=== PATIENT | male | born 1955 | race Caucasian/White ===

== ENCOUNTER 2016-06-25 09:06 | Inpatient (IN) | payer OTHER ==
[2016-06-25] MEDS ORDERED: MAG HYDROX/AL HYDROX/SIMETH 355 ML ORAL.SUSP PO ONE (10:23)
[2016-06-25] MEDS ORDERED: FAMOTIDINE 20 MG/50 ML IVPB 20 MG in PREMIX 50 IVPB ONE (10:23)
--- NOTE | 2016-06-25 10:31 | PDOC ---
History of Present Illness - General History Source: Patient Exam Limitations: No Limitations - History of Present Illness Travel History: No <Rigo Reese - Last Filed: 06/25/16 15:19> - General History Source: Patient Exam Limitations: No Limitations - History of Present Illness Initial Comments: 06/25/16 10:48 The patient is a 60 year old male, with a significant past medical history of NIDDM, who presents to the emergency department with abdominal pain for 1 month. Patient notes that the abdominal pain is localized to LUQ intermittent and sharp in nature radiating to left flank without associated nausea and vomiting. He notes that the pain lasts for ~1 hour after he eats and he describes it as bloated sensation. He denies chest pain, shortness of breath, headache and dizziness. He denies fever, chills, nausea, vomit, diarrhea and constipation. He denies dysuria, frequency, urgency and hematuria. No associated numbness/tingling/weakness. Social history: denies any EtOH use <Maye Monreal - Last Filed: 06/25/16 15:22> - General Chief Complaint: Pain Stated Complaint: LT SIDE PAIN Time Seen by Provider: 06/25/16 09:50 Past History - Past Medical History Diabetes: Yes Hypercholesterolemia: Yes - Psycho/Social/Smoking Cessation Hx Anxiety: No Suicidal Ideation: No Smoking Status: No Smoking History: Never smoked Number of Cigarettes Smoked Daily: 0 Hx Alcohol Use: Yes (SOCIAL) Drug/Substance Use Hx: No Substance Use Type: None <Rigo Reese - Last Filed: 06/25/16 15:19> <Maye Monreal - Last Filed: 06/25/16 15:22> - Past Medical History Allergies/Adverse Reactions: Allergies Allergy/AdvReac Type Severity Reaction Status Date / Time No Known Allergies Allergy Verified 06/25/16 09:17 Home Medications: Ambulatory Orders Sitagliptin Phos/Metformin HCl [Janumet 50-1,000 mg Tablet] 1 each PO DAILY Review of Systems - Review of Systems Able to Perform ROS?: Yes Comments:: 06/25/16 10:48 CONSTITUTIONAL: No reported: Fever, Chills, Diaphoresis, Generalized Weakness, Malaise, Loss of Appetite HEENT: No reported: Rhinorrhea, Nasal Congestion, Throat Pain, Throat Swelling, Difficulty Swallowing, Mouth Swelling, Ear Pain, Eye Pain, Visual Changes CARDIOVASCULAR: No reported: Chest Pain, Syncope, Palpitations, Irregular Heart Rate, Lightheadedness, Peripheral Edema RESPIRATORY: No reported: Cough, Shortness of Breath, SOB with Exertion, Orthopnea, Wheezing , Stridor, Hemoptysis GASTROINTESTINAL: Reported: abdominal pain. No reported: Abdominal Distension, Nausea, Vomiting, Diarrhea, Constipation, Melena, Hematochezia GENITOURINARY: Reported: flank pain No reported: Dysuria, Frequency, Urgency, Hesitancy, Genital Pain MUSCULOSKELETAL: No reported: Myalgia, Arthralgia, Joint Swelling, Neck Pain, Back pain SKIN: No reported: Rash, Itching, Pallor HEMATOLOGIC/IMMUNOLOGIC: No reported: Easy Bleeding, Easy Bruising, Lymphadenopathy, Frequent infections ENDOCRINE: No reported: Unexplained Weight Gain, Unexplained Weight Loss, Heat Intolerance , Cold Intolerance NEUROLOGIC: No reported: Headache, Focal Weakness, Paresthesias, Vertigo, Lightheadedness, Unsteady Gait, Seizure, Mental Status Changes, Incontinence PSYCHIATRIC: No reported: Anxiety, Depression <Maye Monreal - Last Filed: 06/25/16 15:22> *Physical Exam - Vital Signs Last Vital Signs Temp Pulse Resp BP Pulse Ox 97.8 F 78 20 138/75 99 06/25/16 09:12 06/25/16 09:12 06/25/16 09:12 06/25/16 09:12 06/25/16 09:12 <Rigo Reese - Last Filed: 06/25/16 15:19> - Vital Signs Last Vital Signs Temp Pulse Resp BP Pulse Ox 97.8 F 78 20 138/75 99 06/25/16 09:12 06/25/16 09:12 06/25/16 09:12 06/25/16 09:12 06/25/16 09:12 - Physical Exam Comments: 06/25/16 10:48 GENERAL: The patient is awake, alert, and fully oriented, Nontoxic - in no acute distress. HEAD: Normocephalic, atraumatic. EYES: extraocular movements intact, sclera anicteric, conjunctiva clear. ENT: Normal voice, Moist mucous membranes. NECK: Normal range of motion, No JVD LUNGS: Breath sounds equal, clear to auscultation bilaterally. No wheezes, no rhonchi, no rales. HEART: Regular rate and rhythm, normal S1 and S2 without murmur, rub or gallop. ABDOMEN: +mild LUQ tenderness upon palpation. Soft, normoactive bowel sounds. No guarding, no rebound. No masses. No CVA tenderness EXTREMITIES: Normal range of motion, no edema. No clubbing or cyanosis. No cords , erythema, or tenderness. NEUROLOGICAL: No facial asymmetry, Normal speech, normal gait, moving all 4 extremities spontaneously and symmetrically PSYCH: Normal mood, normal affect. SKIN: Warm, Dry, normal turgor. <Maye Monreal - Last Filed: 06/25/16 15:22> ED Treatment Course - LABORATORY CBC & Chemistry Diagram: 06/25/16 10:33 06/25/16 10:33 <Rigo Reese - Last Filed: 06/25/16 15:19> - LABORATORY CBC & Chemistry Diagram: 06/25/16 10:33 06/25/16 10:33 - Medications Given in the ED: ED Medications Discontinued Medications Generic Name Dose Route Start Last Admin Trade Name Ellie PRN Reason Stop Dose Admin Al Hydroxide/Mg Hydroxide 30 ml 06/25/16 10:23 06/25/16 10:43 Mylanta Suspension - PO 06/25/16 10:24 30 ml ONCE ONE Administration <Maye Monreal - Last Filed: 06/25/16 15:22> Medical Decision Making - Medical Decision Making 06/25/16 10:25 60y M hx of dm, htn, presents with LUQ pain x 1 month, worse after he eats and lasts for approx 1 hr, is sharp in nature, and radiates from his left flank to his luq. pts exam is unremarkable. vitals nromal differential for the pts sypmtmos include possible gastritis, pancreatitis consider possible ?mesenteric ischemia, acs will ck ekg to r/o acs will ck labs will give pepcid/maalox consider CTA abdomen will reassesss A portion of this note was documented by scribe services under my direction. I have reviewed the details of the note, within reason, and agree with the documentation with the following case summary and management plan written by me 06/25/16 12:42 The patient's blood work was reviewed lipase elevated to 800s suspect pain secondary to pancreatitis will obtain GB US to r/o gallstone pancreatitis pt give morphine for pain likely admission 06/25/16 15:19 case d.w EDGER TAILER kirby agreed with admission for further mangaement as pt unable to tolerate any thing by mouth due to pain US negative Stable for admission to [facility] Case discussed in detail with admitting physician including history, physical exam and ancillary studies. Admitting physician has assumed care for the patient, will follow all pending diagnostics and will complete the evaluation and treatment. <Rigo Reese - Last Filed: 06/25/16 15:19> *DC/Admit/Observation/Transfer - Discharge Dispostion Admit: Yes <Rigo Reese - Last Filed: 06/25/16 15:19> - Attestations Scribe Attestion: 06/25/16 10:48 Documentation prepared by EDOUARD Woods, acting as medical imaging technologist for Rigo Reese MD. <Maye Monreal - Last Filed: 06/25/16 15:22> Diagnosis at time of Disposition: Pancreatitis Qualifiers: Chronicity: acute Pancreatitis type: other Qualified Code(s): K85.8 - Other acute pancreatitis
[2016-06-25] MEDS ORDERED: MAG HYDROX/AL HYDROX/SIMETH 30 ML UNIT-DOSE CUP ONE (10:39)
[2016-06-25] MEDS ORDERED: FAMOTIDINE 20 MG/50 ML IVPB 50 ML IVPB ONE (10:39)
[2016-06-25 10:53] LABS: BASOPHIL 0.7 % (0-2.0); EOSINOPHIL 1.3 % (0-4.5); MCH 29.3 pg (25.7-33.7); MCHC 32.7 g/dl (32.0-35.9); MEAN CELL VOLUME 89.7 fl (80-96); MEAN PLT VOLUME 9.6 fl (7.5-11.1); NEUTROPHILS 53.4 % (42.8-82.8); PLATELET COUNT 212 K/MM3 (134-434); RDW 13.7 % (11.9-15.9); WHITE BLOOD COUNT 5.7 K/mm3 (4.0-10.0)
[2016-06-25 10:54] LABS: URINE APPEARANCE CLEAR; URINE BILIRUBIN NEGATIVE (NEGATIVE); URINE BLOOD NEGATIVE (NEGATIVE); URINE COLOR YELLOW; URINE GLUCOSE (UA) 1+ (NEGATIVE); URINE KETONE NEGATIVE (NEGATIVE); URINE LEUK ESTERASE NEGATIVE (NEGATIVE); URINE NITRITE NEGATIVE (NEGATIVE); URINE PROTEIN NEGATIVE (NEGATIVE); URINE UROBILINOGEN NEGATIVE E.U./dl (0.2-1.0)
[2016-06-25 11:30] LABS: ALBUMIN 4.3 g/dl (3.4-5.0); ANION GAP 9 (8-16); CALCIUM 9.7 mg/dL (8.5-10.1); CO2 29 mmol/L (21-32); CREATININE 0.9 mg/dL (0.7-1.3); GLUCOSE,RANDOM 182 mg/dL (74-106)
[2016-06-25] MEDS ORDERED: morphine CARPU-JECT 4 MG/1 ML DISP.SYRIN IVPUSH ONE (11:52)
[2016-06-25] MEDS ORDERED: morphine CARPU-JECT 4 MG/1 ML DISP.SYRIN ONE (12:21)
[2016-06-25 12:26] LABS: ALK PHOS 53 U/L (45-117); BILIRUBIN,TOTAL 0.6 mg/dL (0.2-1.0); SGOT/AST 19 U/L (15-37); SGPT/ALT 36 U/L (12-78); TOT PROT 7.6 g/dl (6.4-8.2)
[2016-06-25] MEDS ORDERED: ACETAMINOPHEN 325 MG TABLET (FP) PO PRN (15:21)
[2016-06-25] MEDS ORDERED: ONDANSETRON 4 MG/2 ML VIAL IVPB PRN (15:21)
[2016-06-25] MEDS ORDERED: HYDROmorphone HCL CARPU-JECT 1 MG/1 ML DISP.SYRIN IVPB PRN (15:26)
--- NOTE | 2016-06-25 16:05 | HP ---
CHIEF COMPLAINT: Abdominal pain PCP: Affiliated with [facility] HISTORY OF PRESENT ILLNESS: This is a 60 year old male with a history of NIDDM and CVA (in DR approx 6 months ago, had left-sided weakness at that time, but currently is without residual deficits) who presented to the ED today complaining of abdominal pain. He reports that he has had this pain for months, but it became worse last night. It originates in the LUQ and radiates to the epigastrium. It is worse with eating and he has not been able to eat since last night. He vomited once this morning. He denies hematemesis, hematochezia, fevers /chills, or any other symptoms. He takes ASA 81mg tablet + 40mg tablet daily per his report, but no other NSAIDS. He reports very occasional alcohol use. ER course was notable for: (1) Lipase 821 (2) Abdomen u/s: no gallstones identified Recent Travel: None Social History: From , not currently employed, lives with Smoking: None Alcohol: Occasional Drugs: None Allergies No Known Allergies Allergy (Verified 06/25/16 09:17) HOME MEDICATIONS: Medication Instructions Recorded Sitagliptin Phos/Metformin HCl 1 each PO DAILY 06/25/16 [Janumet 50-1,000 mg Tablet] REVIEW OF SYSTEMS CONSTITUTIONAL: Absent: fever, chills, diaphoresis, generalized weakness, malaise, loss of appetite, weight change HEENT: Absent: rhinorrhea, nasal congestion, throat pain, throat swelling, difficulty swallowing, mouth swelling, ear pain, eye pain, visual changes CARDIOVASCULAR: Absent: chest pain, syncope, palpitations, irregular heart rate, lightheadedness , peripheral edema RESPIRATORY: Absent: cough, shortness of breath, dyspnea with exertion, orthopnea, wheezing, stridor, hemoptysis GASTROINTESTINAL: See HPI GENITOURINARY: Absent: dysuria, frequency, urgency, hesitancy, hematuria, flank pain, genital pain MUSCULOSKELETAL: Absent: myalgia, arthralgia, joint swelling, back pain, neck pain SKIN: Absent: rash, itching, pallor HEMATOLOGIC/IMMUNOLOGIC: Absent: easy bleeding, easy bruising, lymphadenopathy, frequent infections ENDOCRINE: Absent: unexplained weight gain, unexplained weight loss, heat intolerance, cold intolerance NEUROLOGIC: Absent: headache, focal weakness or paresthesias, dizziness, unsteady gait, seizure, mental status changes, bladder or bowel incontinence PSYCHIATRIC: Absent: anxiety, depression, suicidal or homicidal ideation, hallucinations. PHYSICAL EXAMINATION GENERAL: Awake, alert, and fully oriented, in no acute distress. HEAD: Normal with no signs of trauma. EYES: Pupils equal, round and reactive to light, extraocular movements intact, sclera anicteric, conjunctiva clear. No lid lag. EARS, NOSE, THROAT: Ears normal, nares patent, oropharynx clear without exudates. Moist mucous membranes. NECK: Normal range of motion, supple without lymphadenopathy, JVD, or masses. LUNGS: Breath sounds equal, clear to auscultation bilaterally. No wheezes, and no crackles. No accessory muscle use. HEART: Regular rate and rhythm, normal S1 and S2 without murmur, rub or gallop. ABDOMEN: Soft, tender to deep palpation in LUQ and epigastrium, not distended, normoactive bowel sounds, no guarding, no rebound, no masses. No hepatomegaly or splenomegaly. MUSCULOSKELETAL: Normal range of motion at all joints. No bony deformities or tenderness. No CVA tenderness. UPPER EXTREMITIES: 2+ pulses, warm, well-perfused. No cyanosis. No clubbing. Cap refill <2 seconds. No peripheral edema. LOWER EXTREMITIES: 2+ pulses, warm, well-perfused. No calf tenderness. No peripheral edema. NEUROLOGICAL: Cranial nerves II-XII intact. Normal speech. Normal gait. PSYCHIATRIC: Cooperative. Good eye contact. Appropriate mood and affect. SKIN: Warm, dry, normal turgor, no rashes or lesions noted. ASSESSMENT/PLAN: 60 year old male with pancreatitis. Problem List - Problem (1) Pancreatitis Assessment/Plan: -NPO; advance as tolerated -Lactated Ringer's 83 mL/hr -Send LDH -Famotidine 20mg IVPB bid for epigastric discomfort -Dilaudid 0.5mg IVPB q6h prn breakthrough pain -Send triglycerides -Follow lipase Code(s): K85.9 - ACUTE PANCREATITIS, UNSPECIFIED * DO NOT USE * Qualifiers: Chronicity: acute Pancreatitis type: other Qualified Code(s): K85.8 - Other acute pancreatitis (2) Diabetes Assessment/Plan: -Hold oral hypoglycemics while inpatient -FSACHS -ISS -Diabetic diet when resumes PO Code(s): E11.9 - TYPE 2 DIABETES MELLITUS WITHOUT COMPLICATIONS (3) DVT prophylaxis Assessment/Plan: -Lovenox 40mg sq daily -Ambulation Code(s): [id number] - Visit type - Emergency Visit Emergency Visit: Yes ED Registration Date: 06/25/16 Care time: The patient presented to the Emergency Department on the above date and was hospitalized for further evaluation of their emergent condition. - New Patient This patient is new to me today: Yes Date on this admission: 06/25/16 - Critical Care Critical Care patient: No
--- NOTE | 2016-06-25 16:16 | EKG ---
Test Reason : Blood Pressure : / mmHG Vent. Rate : 063 BPM Atrial Rate : 063 BPM P-R Int : 160 ms QRS Dur : 082 ms QT Int : 396 ms P-R-T Axes : 067 011 035 degrees QTc Int : 405 ms POOR DATA QUALITY, INTERPRETATION MAY BE ADVERSELY AFFECTED NORMAL SINUS RHYTHM NORMAL ECG NO PREVIOUS ECGS AVAILABLE Confirmed by BRANDY PARRA MD ([id number]) on 06/25/2016 4:16:16 PM Referred By: Confirmed By:BRANDY PARRA MD
[2016-06-25 18:20] VITALS: BMI 27.3
[2016-06-25] MEDS ORDERED: INFLUENZA VACCINE 45 MCG/0.5 ML (MDV 16-17) IM ONE (18:21)
[2016-06-25] MEDS ORDERED: PNEUMOC 13-VAL CONJ-DIP CRM/PF 0.5 ML DISP.SYRIN IM ONE (18:21)
[2016-06-25] MEDS: INSULIN SLIDING SCALE (NOVOLOG) 1 VIAL SQ SCH ×2 (18:27→21:42)
[2016-06-25] MEDS ORDERED: PNEUMOCOCCAL 23 VACCINE 0.5 ML VIAL IM ONE (18:30)
[2016-06-25] MEDS: LACTATED RINGERS SOLUTION 1,000 ML IV SCH (19:30)
[2016-06-25] MEDS: FAMOTIDINE 20 MG/50 ML IVPB 50 ML IVPB SCH (21:46)
[2016-06-26 05:51] VITALS: PULSE 65
[2016-06-26] MEDS: LACTATED RINGERS SOLUTION 1,000 ML IV SCH (05:53)
[2016-06-26] MEDS: INSULIN SLIDING SCALE (NOVOLOG) 1 VIAL SQ SCH ×2 (06:04→11:36)
[2016-06-26 07:59] LABS: BASOPHIL 0.6 % (0-2.0); EOSINOPHIL 1.2 % (0-4.5); MCH 29.4 pg (25.7-33.7); MCHC 33.1 g/dl (32.0-35.9); MEAN CELL VOLUME 88.9 fl (80-96); MEAN PLT VOLUME 9.4 fl (7.5-11.1); NEUTROPHILS 56.9 % (42.8-82.8); PLATELET COUNT 187 K/MM3 (134-434); RDW 13.6 % (11.9-15.9); WHITE BLOOD COUNT 5.4 K/mm3 (4.0-10.0)
[2016-06-26 08:20] LABS: ALBUMIN 3.6 g/dl (3.4-5.0); ANION GAP 7 (8-16); CO2 29 mmol/L (21-32); GLUCOSE,RANDOM 107 mg/dL (74-106); SGOT/AST 14 U/L (15-37)
[2016-06-26 08:23] LABS: ALK PHOS 46 U/L (45-117); BILIRUBIN,TOTAL 0.8 mg/dL (0.2-1.0); CREATININE 0.8 mg/dL (0.7-1.3); SGPT/ALT 28 U/L (12-78); TOT PROT 6.6 g/dl (6.4-8.2)
[2016-06-26] MEDS: FAMOTIDINE 20 MG/50 ML IVPB 50 ML IVPB SCH (09:02)
[2016-06-26] MEDS ORDERED: ENOXAPARIN NA (PORCINE) 40 MG/0.4 ML DISP.SYRIN SQ SCH (10:00)
[2016-06-26 10:44] VITALS: BP 144/62; TEMP 97.8
--- NOTE | 2016-06-26 13:30 | DS ---
Physical Exam: SUBJECTIVE: Patient seen and examined. He wants to eat he denies further abd pain OBJECTIVE: Vital Signs Period Temp Pulse Resp BP Sys/Hull Pulse Ox Last 24 Hr 97.5 F-98.1 F 64-70 16-21 118-144/62-89 98-98 PHYSICAL EXAM GENERAL: The patient is awake, alert, and fully oriented, in no acute distress. HEAD: Normal with no signs of trauma. EYES: PERRL, extraocular movements intact, sclera anicteric, conjunctiva clear. ENT: Ears normal, nares patent, oropharynx clear without exudates, moist mucous membranes. NECK: Trachea midline, full range of motion, supple. LUNGS: Breath sounds equal, clear to auscultation bilaterally, no wheezes, no crackles, no accessory muscle use. HEART: Regular rate and rhythm, S1, S2 without murmur, rub or gallop. ABDOMEN: Soft, nontender, nondistended, normoactive bowel sounds, no guarding, no rebound, no hepatosplenomegaly, no masses. EXTREMITIES: 2+ pulses, warm, well-perfused, no edema. NEUROLOGICAL: Cranial nerves II through XII grossly intact. Normal speech, gait not observed. PSYCH: Normal mood, normal affect. SKIN: Warm, dry, normal turgor, no rashes or lesions noted. LABS Laboratory Results - last 24 hr 06/25/16 06/25/16 06/25/16 18:22 18:30 21:41 WBC RBC Hgb Hct MCV MCHC RDW Plt Count MPV Neutrophils % Lymphocytes % Monocytes % Eosinophils % Basophils % Sodium Potassium Chloride Carbon Dioxide Anion Gap BUN Creatinine Creat Clearance w eGFR POC Glucometer 120 103 Random Glucose Calcium Total Bilirubin AST ALT Alkaline Phosphatase LD Total 158 Total Protein Albumin Triglycerides Lipase 06/26/16 06/26/16 06/26/16 05:35 05:35 05:52 WBC 5.4 RBC 4.65 Hgb 13.7 Hct 41.3 MCV 88.9 MCHC 33.1 RDW 13.6 Plt Count 187 MPV 9.4 Neutrophils % 56.9 Lymphocytes % 31.4 Monocytes % 9.9 Eosinophils % 1.2 Basophils % 0.6 Sodium 140 Potassium 4.1 Chloride 104 Carbon Dioxide 29 Anion Gap 7 L BUN 12 Creatinine 0.8 Creat Clearance w eGFR > 60 POC Glucometer 110 Random Glucose 107 H D Calcium 9.0 Total Bilirubin 0.8 D AST 14 L D ALT 28 D Alkaline Phosphatase 46 LD Total Total Protein 6.6 Albumin 3.6 Triglycerides 74 Lipase 146 06/26/16 11:35 WBC RBC Hgb Hct MCV MCHC RDW Plt Count MPV Neutrophils % Lymphocytes % Monocytes % Eosinophils % Basophils % Sodium Potassium Chloride Carbon Dioxide Anion Gap BUN Creatinine Creat Clearance w eGFR POC Glucometer 95 Random Glucose Calcium Total Bilirubin AST ALT Alkaline Phosphatase LD Total Total Protein Albumin Triglycerides Lipase HOSPITAL COURSE: Date of Admission:06/25/16 Date of Discharge: 06/26/16 Minutes to complete discharge: 35 Discharge Summary Reason For Visit: PANCREATITIS Current Active Problems DVT prophylaxis (Acute) Diabetes (Acute) Pancreatitis (Acute) Hospital Course: Initial Hospital Course: Briefly, 60 year old male with a history of NIDDM and CVA (in DR approx 6 months ago, had left-sided weakness at that time, but currently is without residual deficits) who presented to the ED today complaining of abdominal pain. He reported he has had this pain for months, but it became worse last night. It originates in the LUQ and radiates to the epigastrium. It is worse with eating and he has not been able to eat x1 day. He vomited once prior to admission. Admitted w/ pancreatitis Subsequent Hospital Course/Progress Note/Discharge Summary by a/p: Patient was given 2L LR. Lipase down trended to wnl, LDH, Triglycerides wnl No further abd pain noted, no vomiting, no nausea Tolerated diet Abdomen u/s: no gallstones identified, unremarkable Instructed pt to stop taking janumet, can cause pancreatitis While evaluating pt, made not to tell to stop drinking alcohol, pt states he doesn't drink that much, I counseled him on the risk of continued use in PT placed on metformin Referral for PCP at [address] [place] [address] and [facility] made for PCP initiation and follow up next week PT aware and agrees to above plan Condition: Stable - Instructions Diet, Activity, Other Instructions: Please return to the ED for any new, persistent, or worsening symptoms. Follow up with your Primary Care Doctor in 1 week - Go to to the [facility] [place] for new doctor visit and follow up [address] [place] [id number] You will need to followup with [facility] next week - [facility] [address] [facility] [place], [id number] [phone] Stop taking Janumet for your diabetes Start taking metformin, do not restart Janumet until doctor clears you, it could have had an effect on your pancreatitis You will also need to abstain from drinking alcohol Referrals: Stephanie Mullen MD [Staff Physician] - Disposition: HOME - Home Medications Comprehensive Discharge Medication List: Ambulatory Orders Metformin HCl [Metformin HCl ER] 1,000 mg PO DAILY #30 tab.[id number] 06/26/16 This patient is new to me today: Yes Date on this admission: 06/26/16 Emergency Visit: Yes ED Registration Date: 06/25/16 Care time: The patient presented to the Emergency Department on the above date and was hospitalized for further evaluation of their emergent condition. Critical Care patient: No - Discharge Referral Referred to [facility] Med P.C[facility] No
== END 2016-06-26 13:34 | disposition home or self-care (01) | DRG 439 ==
LOC: JER 09:06 → JERBED 15:25 → J6S 17:53
PROVIDERS: ADMIT Internal Medicine; ATTEND Nurse Practitioner Acute Care
DX: K85.90 Acute pancreatitis without necrosis or infection, unspecified (principal); I69.354 Hemiplegia and hemiparesis following cerebral infarction affecting left non-dominant side; E11.9 Type 2 diabetes mellitus without complications
CPT/HCPCS: 36415; 71020-TC; 76700-TC; 80053; 81003; 83615; 83690; 84478; 85025; 93005; 93010; 99285-25; G0008; Q2037